=== PATIENT | female | born 1990 | race Caucasian/White ===

== ENCOUNTER 2018-11-06 11:25 | Emergency (ER) | payer BC ==
[~2018-11-06] VITALS: Ht 172.7 cm; Wt 89.0 kg
--- NOTE | 2018-11-06 12:14 | NUR ---
patient is 30 weeks , just had [address] wk [address] Munoz last : per patient all is well with her was at [facility] last month and Dx with bronchitis and given a Z pack here now due to to painful coughing, coughing up yellow when in shower
[2018-11-06] MEDS ORDERED: albuterol 2.5 MG/3 ML nebule NEB ONE (12:40)
[2018-11-06] MEDS ORDERED: pseudoephedrine 30mg tablet PO ONE (12:40)
[2018-11-06 13:21] VITALS: BP 131/69
== END 2018-11-06 13:26 | disposition home or self-care (01) ==
LOC: ER 11:25
DX: O99.513 Diseases of the respiratory system complicating pregnancy, third trimester (principal); J06.9 Acute upper respiratory infection, unspecified; Z3A.30 30 weeks gestation of pregnancy
CPT/HCPCS: 94640; 94760; 99283